=== PATIENT | male | born 1975 | race African-American/Black ===

== ENCOUNTER 2019-11-09 22:35 | Emergency (ER) | payer SELFPAY ==
[~2019-11-09] VITALS: Ht 185.4 cm; Wt 72.7 kg
[~2019-11-09 22:35] MED LIST: DIPH25CA58 PO; PRED20TA PO
[2019-11-09 23:00] LABS: BILIRUBIN,URINE NEGATIVE (NEG); COLOR,URINE RED; NITRITE,URINE NEGATIVE (NEG); PROTEIN,URINE 100 mg/dL (NEG-TRACE); UROBILINOGEN,URINE 0.2 mg/dL (0.2 mg/dL)
[2019-11-09 23:04] LABS: BACTERIA,URINE 0 /HPF (0-FEW); RBC,URINE TNTC /HPF (0-2)
[2019-11-09 23:06] LABS: CLARITY,URINE CLOUDY
[2019-11-09 23:07] LABS: SQUAMOUS EPITHELIAL CELL,UR OCC /LPF
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
[2019-11-09] MEDS ORDERED: CIPR500T94 PO (23:13)
[2019-11-09 23:22] VITALS: BP 132/84
== END 2019-11-09 23:26 | disposition home or self-care (01) ==
LOC: ER 22:35
DX: R31.9 Hematuria, unspecified (principal); F17.200 Nicotine dependence, unspecified, uncomplicated; F10.10 Alcohol abuse, uncomplicated; Z98.890 Other specified postprocedural states
CPT/HCPCS: 81001; 87086; 99283

== ENCOUNTER 2021-08-01 16:38 | Emergency (ER) | payer SELFPAY ==
[~2021-08-01] VITALS: Ht 185.4 cm; Wt 73.1 kg
[~2021-08-01 16:38] MED LIST changes: +CIPR500T94 PO
[2021-08-01] MEDS ORDERED: IBUPROFEN 400 MG TABLET. PO ONE (17:00)
[2021-08-01] MEDS ORDERED: IBUP-1007 PO (17:16)
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
[2021-08-01 17:55] VITALS: BP 126/74
--- NOTE | 2021-08-01 18:32 | RAD ---
XR KNEE _3 VIEWS_LT History: Reason: pain, swelling / Spl. Instructions: / History: Technique: 3 views left knee Comparison: None. Findings: No dislocation. No acute fracture. Probable moderate knee joint effusion. Anterior knee soft tissue s welling. Mild knee degenerative changes most prominent in the medial and patellofemoral compartment. Impression: 1. No acute osseous abnormality. 2. Moderate knee joint effusion. 3. Anterior knee soft tissue swelling. Electronically signed by: Lewis Navas DO (08/01/2021 6:29 PM) IKE
== END 2021-08-01 17:56 | disposition home or self-care (01) ==
LOC: ER 16:38
DX: M25.562 Pain in left knee (principal); G89.29 Other chronic pain; M25.462 Effusion, left knee; F17.200 Nicotine dependence, unspecified, uncomplicated; F10.20 Alcohol dependence, uncomplicated; Y90.9 Presence of alcohol in blood, level not specified
CPT/HCPCS: 73562; 99283